=== PATIENT | female | born 1980 | race African-American/Black ===

== ENCOUNTER 2022-06-19 17:36 | Emergency (ER) | payer SELFPAY ==
[~2022-06-19] VITALS: Ht 162.6 cm; Wt 86.0 kg
[2022-06-19] MEDS ORDERED: ONDANSETRON HCL 4MG/2ML INJ IV STA (18:04)
[2022-06-19] MEDS ORDERED: SODIUM CHLORIDE 0.9% 1,000 ML IV ONE (18:15)
[2022-06-19] MEDS ORDERED: FAMOTIDINE 20MG/2ML VIAL IV ONE (18:15)
[2022-06-19 18:33] LABS: BASOPHILS % 0.2 % (0.0-2.0); HEMATOCRIT. 38.9 % (36.0-48.0); LYMPHOCYTES % 7.7 % (20.0-50.0); MEAN CORPUSCULAR HEMOGLOBIN 37.8 pg (28.0-32.0); MEAN CORPUSCULAR VOLUME 113.1 fL (81.0-99.0); MEAN PLATELET VOLUME 8.7 fl (7.4-10.4); NEUTROPHILS % 84.1 % (40.0-76.0); PLATELET 313 x1000/uL (130-400); RED BLOOD CELL COUNT 3.44 mill/uL (4.2-5.4)
[2022-06-19 18:41] LABS: CHLORIDE 99 mEq/L (98-107)
[2022-06-19 18:42] LABS: HCG SCREEN NEGATIVE
[2022-06-19 18:54] LABS: PLATELET ESTIMATE NORMAL
[2022-06-19] MEDS ORDERED: DEXTROSE 50% WATER 50ML SYRINGE IV ONE (18:54)
[2022-06-19] MEDS ORDERED: THROAT LOZENGES-BENZOCAINE/MENTH/CETYLPYRD CL LOZENGES MM PRN (20:45)
[2022-06-19] MEDS ORDERED: BENZ1LOZ73 MT (21:06)
[2022-06-19] MEDS ORDERED: ONDA4TAB11 PO (21:06)
[2022-06-19] MEDS ORDERED: FAMO-135 MT (21:14)
[2022-06-19 21:27] VITALS: BP 121/67
== END 2022-06-19 21:29 | disposition home or self-care (01) ==
LOC: ER 17:36
DX: R11.2 Nausea with vomiting, unspecified (principal); J45.909 Unspecified asthma, uncomplicated
CPT/HCPCS: 36415; 71045; 80053; 82962; 84703; 85025; 96361; 96374; 96375; 99284; J2405; J3490; J7030; Z7610

== ENCOUNTER 2024-11-05 10:23 | Emergency (ER) | payer MEDICAID ==
[~2024-11-05] VITALS: Ht 167.6 cm; Wt 60.0 kg
[~2024-11-05 10:23] MED LIST: BENZ1LOZ73 MT; FAMO-135 MT; ONDA-239 PO
[2024-11-05 10:28] VITALS: O2SAT 99
[2024-11-05 11:33] LABS: BASOPHILS % 0.2 % (0.0-2.0); EOSINOPHILS % 0.6 % (0.0-5.0); HEMATOCRIT. 34.3 % (36.0-48.0); HEMOGLOBIN. 11.6 g/dL (12.0-16.0); LYMPHOCYTES % 9.1 % (20.0-50.0); MEAN PLATELET VOLUME 8.1 fl (7.4-10.4); MONOCYTES % 9.2 % (2.0-8.0); NEUTROPHILS % 80.9 % (40.0-76.0); PLATELET 99 x1000/uL (130-400); RED BLOOD CELL COUNT 3.18 mill/uL (4.2-5.4); RED CELL DISTRIBUTION WIDTH 14.8 % (11.6-14.6)
[2024-11-05 11:46] LABS: CREATININE 1.3 mg/dL (0.6-1.0)
[2024-11-05 11:47] LABS: UREA NITROGEN BLOOD 8.0 mg/dL (9-23)
[2024-11-05 14:25] LABS: HCG SCREEN NEGATIVE
[2024-11-05 14:31] LABS: ASPARTATE AMINOTRANSFERASE 56 IU/L (<34); BILIRUBIN DIRECT 0.6 mg/dL (<=3.0); BILIRUBIN TOTAL 1.5 mg/dL (0.1-1.0); PHOSPHORUS 1.2 mg/dL (2.5-4.9); PROTEIN TOTAL 8.4 g/dL (6.0-8.3)
[2024-11-05] MEDS: KETOROLAC 15MG/ML VIAL IV ONE (15:06)
[2024-11-05] MEDS: ONDANSETRON HCL 4MG/2ML INJ IV ONE (15:06)
[2024-11-05] MEDS: MORPHINE SULFATE 2 MG/ML INJ (NOT FOR IM USE) IV ONE (15:06)
[2024-11-05] MEDS: SODIUM CHLORIDE 0.9% 1,000 ML IV ONE (15:07)
[2024-11-05] MEDS: POTASSIUM-SODIUM PHOSPHATE POWDER PACKET PO ONE (15:26)
[2024-11-05] MEDS: FAMOTIDINE 20MG/2ML VIAL IV ONE (15:26)
[2024-11-05] MEDS ORDERED: ONDA-239 PO (18:19)
[2024-11-05] MEDS ORDERED: HYDR-4001 MT (18:19)
[2024-11-05] MEDS ORDERED: PANT40TA51 MT (18:19)
[2024-11-05] MEDS ORDERED: IBUP-2029 MT (18:19)
[2024-11-05 18:48] VITALS: BP 151/90; PULSE 78; RESP 16; TEMP 36.9; O2SAT 100
== END 2024-11-05 18:52 | disposition home or self-care (01) ==
LOC: ER 10:23
DX: R10.9 Unspecified abdominal pain (principal); R11.2 Nausea with vomiting, unspecified; F12.90 Cannabis use, unspecified, uncomplicated; J45.909 Unspecified asthma, uncomplicated; Z79.899 Other long term (current) drug therapy; Z87.19 Personal history of other diseases of the digestive system
CPT/HCPCS: 80076; 80048; 84703; 83690; 83735; 84100; 85025; 36415; 74176; 96361; 96374; 96375; 99285; J1308; J1885; J2405; J2270; J7030; Z7610

== ENCOUNTER 2025-01-17 14:17 | Emergency (ER) | payer MEDICAID ==
[~2025-01-17] VITALS: Ht 165.1 cm; Wt 55.0 kg
[~2025-01-17 14:17] MED LIST changes: +HYDR-4001 MT; +IBUP-1455 MT; +PANT40TA51 MT
[2025-01-17 14:24] VITALS: O2SAT 100
[2025-01-17] MEDS: ONDANSETRON 4MG ODT PO ONE (15:07)
[2025-01-17] MEDS: FAMOTIDINE 20MG TABLET PO ONE (15:07)
[2025-01-17] MEDS: MAGNESIUM/ALUMINUM HYDROXIDE/SIMETHICONE 30ML UDC PO ONE (15:07)
[2025-01-17 15:51] LABS: BASOPHILS % 0.3 % (0.0-2.0); EOSINOPHILS % 0.3 % (0.0-5.0); HEMATOCRIT. 35.9 % (36.0-48.0); HEMOGLOBIN. 11.8 g/dL (12.0-16.0); LYMPHOCYTES % 9.5 % (20.0-50.0); MEAN PLATELET VOLUME 7.2 fl (7.4-10.4); MONOCYTES % 4.8 % (2.0-8.0); NEUTROPHILS % 85.1 % (40.0-76.0); PLATELET 467 x1000/uL (130-400); RED BLOOD CELL COUNT 3.68 mill/uL (4.2-5.4); RED CELL DISTRIBUTION WIDTH 21.0 % (11.6-14.6)
[2025-01-17] MEDS: SODIUM CHLORIDE 0.9% 1,000 ML IV ONE (16:04)
[2025-01-17 16:09] LABS: CREATININE 0.6 mg/dL (0.6-1.0)
[2025-01-17] MEDS: ONDANSETRON HCL 4MG/2ML INJ IV ONE (16:09)
[2025-01-17 16:10] LABS: UREA NITROGEN BLOOD 7 mg/dL (9-23)
[2025-01-17 16:11] LABS: ASPARTATE AMINOTRANSFERASE 49 IU/L (<34); BILIRUBIN DIRECT 0.5 mg/dL (<=3.0)
[2025-01-17 16:12] LABS: BILIRUBIN TOTAL 1.2 mg/dL (0.1-1.0); PROTEIN TOTAL 6.7 g/dL (6.0-8.3)
[2025-01-17 16:24] LABS: HCG SCREEN NEGATIVE
[2025-01-17] MEDS: KETOROLAC 30MG/ML VIAL IV ONE (17:31)
[2025-01-17 20:39] LABS: CLARITY URINE TURBID (CLEAR); COLOR URINE ORANGE (YELLOW); GLUCOSE URINE NEGATIVE (NEGATIVE); KETONES URINE NEGATIVE (NEGATIVE); LEUKOCYTE ESTERASE URINE 2+ (NEGATIVE); NITRITE URINE POSITIVE (NEGATIVE); OCCULT BLOOD URINE 1+ (NEGATIVE); PH URINE 5.5 (4.5-8.0); PROTEIN URINE 2+ (NEGATIVE); SPECIFIC GRAVITY URINE 1.031 (1.005-1.030); UROBILINOGEN URINE 1.0 E.U./dL (0.2-1.0)
[2025-01-17 20:54] LABS: *AMPHETAMINES SCREEN URINE NEGATIVE (NEGATIVE); *BARBITURATES SCREEN URINE NEGATIVE (NEGATIVE); *BENZODIAZEPINES SCREEN URINE NEGATIVE (NEGATIVE); *COCAINE SCREEN URINE NEGATIVE (NEGATIVE)
[2025-01-17] MEDS ORDERED: ONDA-239 PO (20:54)
[2025-01-17] MEDS ORDERED: FAMO-135 MT (20:54)
[2025-01-17 20:55] LABS: CANNABINOID URINE SCREEN NEGATIVE (NEGATIVE); ECSTASY MDMA SCREEN URINE NEGATIVE (NEGATIVE); METHADONE URINE SCREEN NEGATIVE (NEGATIVE); OPIATES URINE SCREEN NEGATIVE (NEGATIVE); PHENCYCLIDINE URINE SCREEN NEGATIVE (NEGATIVE)
[2025-01-17 20:57] LABS: WBC URINE 25-50 /hpf (0-2)
[2025-01-17 20:58] LABS: AMORPHOUS SEDIMENT URINE 2+ /lpf; BACTERIA URINE 3+; MUCUS URINE 1+ /lpf (< = 2+); RBC URINE 0-2 /hpf (0-2); SQUAMOUS EPITHELIAL CELL URINE RARE /lpf (RARE/1+)
[2025-01-17] MEDS ORDERED: CEFP200T14 MT (20:59)
[2025-01-17 21:08] VITALS: TEMP 36.8; O2SAT 100
[2025-01-17 21:09] VITALS: BP 131/80; PULSE 96; RESP 18
[2025-01-17] MEDS: METOCLOPRAMIDE HCL 10MG/2ML VIAL IV ONE (21:09)
[2025-01-17] MEDS: HYDROCODONE/ACETAMINOPHEN 5/325MG TABLET PO ONE (21:09)
== END 2025-01-17 21:20 | disposition home or self-care (01) ==
LOC: ER 14:53
DX: K29.70 Gastritis, unspecified, without bleeding (principal); F10.10 Alcohol abuse, uncomplicated; J45.909 Unspecified asthma, uncomplicated; Z79.899 Other long term (current) drug therapy; Z87.19 Personal history of other diseases of the digestive system; F12.90 Cannabis use, unspecified, uncomplicated; Y90.9 Presence of alcohol in blood, level not specified
CPT/HCPCS: 80076; 80305; 80048; 81003; 80320; 84703; 83690; 85025; 36415; 74176; 96361; 96374; 96375; 99285; Q0162; J1885; J2765; J2405; J7030; G0480